=== PATIENT | male | born 1960 | race African-American/Black ===

== ENCOUNTER 2016-07-19 02:17 | Emergency (ER) | payer OTHER ==
[~2016-07-19] VITALS: Ht 180.3 cm; Wt 79.0 kg
[2016-07-19 02:20] VITALS: BP 159/90; PULSE 83; RESP 14; TEMP 98.6; O2SAT 99
[2016-07-19] MEDS ORDERED: predniSONE 20 MG TAB PO ONE (02:45)
[2016-07-19] MEDS ORDERED: RESP: ALBUTEROL 2.5 MG/IPRATROPIUM 0.5 MG NEB (SCH) INH ONE (02:45)
[2016-07-19] MEDS ORDERED: ALBU6.7H INH (02:49)
[2016-07-19] MEDS ORDERED: PRED-503 PO (02:49)
--- NOTE | 2016-07-19 02:55 | PD ---
HPI Chief Complaint: Cold / Flu Symptoms Time Seen by Provider: 02:51 Travel History International Travel<30 days: No Contact w/Intl Traveler<30days: No Traveled to known affect area: No History of Present Illness HPI 56-year-old black male presents to emergency department with a four-day history of coughing congestion. He was seen by his doctor 2 days ago and started on amoxicillin. He states that he has had persistent cough, congestion, wheezing and general malaise. He denies any fever or chills. No ear pain or sore throat. No nausea vomiting. No bowel pain or diarrhea. PFSH Past Medical History Narrative Medical Bronchitis Tetanus Vaccination: < 5 Years Past Surgical History Surgical History: No Previous Surgery Social History Alcohol Use: No Tobacco Use: No Substance Use: No Allergies-Medications (Allergen,Severity, Reaction): Coded Allergies: No Known Allergies (Unverified , 07/19/16) Reported Meds & Prescriptions Reported Meds & Active Scripts Active Proventil Hfa 6.7 GM Inh (Albuterol Sulfate) 90 Mcg/Act Aer 2 Puff INH Q4-6H PRN Deltasone (Prednisone) 20 Mg Tab 20 Mg PO TID Review of Systems Except as stated in HPI: all other systems reviewed are Neg Physical Exam Narrative GENERAL: Well-developed, well-nourished in no acute distress. Nontoxic appearing. Intermittent coughing during exam HEAD: Normocephalic, atraumatic. EYES: Pupils equal round and reactive. Extraocular motions intact. No scleral icterus. No injection or drainage. ENT: TMs clear without erythema. The external auditory canals clear. Nose: clear . Posterior pharynx is pink and moist. No tonsillar edema or exudate. Uvula midline. Airway patent. NECK: Trachea midline.Supple, nontender, moves head freely. No central bony tenderness or spasm. CARDIOVASCULAR: Regular rate and rhythm without murmurs, gallops, or rubs. RESPIRATORY: Few expiratory wheezes. No Rales or rhonchi. GASTROINTESTINAL: Abdomen soft, non-tender, nondistended. No hepato-splenomegaly , or palpable masses. No guarding. EXTREMITIES: No clubbing, cyanosis, or edema. No joint tenderness, effusion, or edema noted. BACK: Nontender without deformity or crepitance. No flank tenderness. Data Data Last Documented VS Vital Signs Date Time Temp Pulse Resp B/P Pulse Ox O2 Delivery O2 Flow Rate FiO2 07/19/16 02:20 98.6 83 14 159/90 99 Room Air Orders Prednisone (Deltasone) (07/19/16 02:45) Albuterol-Ipratropium Neb (Duoneb Neb) (07/19/16 02:45) MDM Medical Decision Making Medical Screen Exam Complete: Yes Emergency Medical Condition: Yes Medical Record Reviewed: Yes Differential Diagnosis MDM: High Differential diagnoses: Pneumonia, bronchitis, URI, asthma, RAD, legionnaire's disease, SARS, ARDS, influenza, bronchiolitis, RSV,PE,CHF Narrative Course Patient is given prednisone 60 mg by mouth and DuoNeb. The patient is reexamined he is subjectively feeling better. Lungs are clear. Coughing has improved. This is bronchitis, reactive airway disease Diagnosis Primary Impression: Bronchitis Additional Impression: Reactive airway disease Qualified Code: J45.20 - Reactive airway disease, mild intermittent, uncomplicated Patient Instructions: General Instructions Additional Instructions: Rest. Increase fluids. Tylenol and Advil. Robitussin-DM. Continue her amoxicillin to complete prednisone, and albuterol. Followup with your Dr. in one week. Return to the ER for any problems. Med/Other Pt SpecificInfo: Prescription(s) given Scripts Albuterol 6.7 GM Inh (Proventil Hfa 6.7 GM Inh)90 Mcg/Act Aer2 Puff INH Q4-6H PRN (SHORTNESS OF BREATH) #1 INHALER Prov:Renato Miller MD 07/19/16 Prednisone (Deltasone)20 Mg Tab20 Mg PO TID #15 TAB Prov:Renato Miller MD 07/19/16 Disposition: 01 DISCHARGE HOME Condition: Stable Frederick Crespo July 19, 2016 02:55
== END 2016-07-19 03:22 | disposition home or self-care (01) ==
LOC: NEPD 02:17
DX: J45.20 Mild intermittent asthma, uncomplicated (principal)
CPT/HCPCS: 94664; 99283; J7512